=== PATIENT | female | born 1980 | race Caucasian/White ===

== ENCOUNTER 2016-10-19 00:07 | Emergency (ER) | payer OTHER ==
[~2016-10-19] VITALS: Ht 162.6 cm; Wt 96.3 kg
[~2016-10-19 00:07] MED LIST: CEFDINIR300 MG PO; CIPRO500 MG PO; COMPAZINE10 MG PO; ENDOCET 5-3251 EACH PO; FERROUS SULFAT325 MG PO; FLAGYL500 MG PO; IMODIUM MS REL1 EACH PO; IRON325 M1 PO; K-DUR20 MEQ PO; LEVAQUIN500 MG PO; MARINOL2.5 M1 PO; MELATONIN5 M1 PO; NORCO 5/3251 TABLET PO; OXAYDO5 MG PO; PANTOPRAZOLE SO20 MG PO; PANTOPRAZOLE SO40 MG PO; ZOFRAN8 MG PO
[2016-10-19] MEDS ORDERED: PERCOCET 5/31 TABLET PO (03:27)
[2016-10-19 03:36] VITALS: BP 133/80
== END 2016-10-19 03:37 | disposition home or self-care (01) ==
LOC: EME 00:07
DX: T83.89XA Other specified complication of genitourinary prosthetic devices, implants and grafts, initial encounter (principal); Z85.038 Personal history of other malignant neoplasm of large intestine
CPT/HCPCS: 99281; 99283

== ENCOUNTER 2016-10-19 18:49 | Inpatient (IN) | payer OTHER ==
[~2016-10-19] VITALS: Ht 162.6 cm; Wt 103.6 kg
[~2016-10-19 18:49] MED LIST changes: +PERCOCET 5/31 TABLET PO
[2016-10-19 21:37] LABS: CHLORIDE 106 mEq/L (99-109); POTASSIUM 3.9 mEq/L (3.7-5.4); SODIUM 140 mEq/L (136-147)
[2016-10-19 21:39] LABS: GLUCOSE 111 mg/dL (70-99)
[2016-10-19 21:41] LABS: ANION GAP 15 MEQ/L (2-14)
[2016-10-19 21:43] LABS: GFR ESTIMATE (CALCULATED) > 59 mL/min/
[2016-10-19 21:44] LABS: UREA NITROGEN (BUN) 10 mg/dL (9-23)
[2016-10-19 21:45] LABS: HEMATOCRIT 35.4 % (36.0-46.0); MCH 20.6 PG (29.0-34.0); MCHC 30.8 G/DL (30.0-36.0); RBC DIS.WIDTH-CV 20.3 % (11.8-14.6); RBC DIS.WIDTH-SD 47.6 % (39-53)
[2016-10-19 21:55] LABS: RED BLOOD COUNT 5.28 M/uL (3.80-5.20); WHITE BLOOD COUNT 11.1 K/uL (4.1-10.2)
[2016-10-19 22:20] LABS: ADD MIUA? NO; BILIRUBIN NEGATIVE; BLOOD NEGATIVE; COLOR YELLOW ((YELLOW)); GLUCOSE (STRIP) NEGATIVE; KETONES TRACE; LEUKOCYTES NEGATIVE; NITRITE NEGATIVE; PH, URINE 5.5 (5-8); PROTEIN (STRIP) 30; SPECIFIC GRAVITY 1.031 (1.000-1.030); UCUL ADDED? NO; UROBILINOGEN 0.2 MG/DL (0.2-1.0)
[2016-10-19 22:22] LABS: PLATELET COUNT UNABLE TO REPORT K/uL (156-360)
[2016-10-20 15:35] LABS: EOSINOPHIL (%) 0.6 % (0-5); EOSINOPHIL COUNT 0.1 K/uL (0-0.3); HEMATOCRIT 29.9 % (36.0-46.0); IMMATURE GRANULOCYTE (%) 2.5 % (0.0-0.7); IMMATURE GRANULOCYTE COUNT 2.9 K/uL; LYMPHOCYTE COUNT 0.1 K/uL (1.0-2.8); MCH 20.9 PG (29.0-34.0); MCHC 31.1 G/DL (30.0-36.0); MONOCYTE (%) 5.3 % (3-12); MONOCYTE COUNT 0.6 K/uL (0-0.8); NEUTROPHIL (%) 90.6 % (45-76); NEUTROPHIL COUNT 10.7 K/uL (1.8-6.4); RBC DIS.WIDTH-CV 20.5 % (11.8-14.6); RBC DIS.WIDTH-SD 47.4 % (39-53); RED BLOOD COUNT 4.46 M/uL (3.80-5.20); WHITE BLOOD COUNT 11.8 K/uL (4.1-10.2)
[2016-10-20 15:40] LABS: INTER. NORMALIZED RATIO 1.2; PROTHROMBIN TIME 12.1 (9.2-11.2); PTT 25.7 (25-32)
[2016-10-20 16:16] LABS: HEMATOLOGY COMMENT 1 SMEAR COMPATIBLE; PLAT.SUFFICIENCY DECREASED; PLATELET COUNT 113 K/uL (156-360); USER ID SS
[2016-10-20 16:49] VITALS: BP 96/54
[2016-10-20 20:41] VITALS: BP 81/46
[2016-10-20 21:42] VITALS: BP 77/44
[2016-10-20 22:09] LABS: HEMATOCRIT 25.6 % (36.0-46.0); MCV 68.6 FL (83-99)
[2016-10-21] VITALS (16 sets, daily range): BP systolic 86–107; BP diastolic 48–62
[2016-10-21 09:29] LABS: ANION GAP 10 MEQ/L (2-14); CHLORIDE 108 MEQ/L (99-109); GLUCOSE 154 mg/dL (70-99); POTASSIUM 4.3 MEQ/L (3.7-5.4); SAMPLE HEMOLYSIS CHECK 0; SAMPLE ICTERIC CHECK 0; SAMPLE LIPEMIA CHECK 0; SODIUM 137 MEQ/L (136-147)
[2016-10-21 09:31] LABS: GFR ESTIMATE (CALCULATED) 39 mL/min/; UREA NITROGEN (BUN) 26 mg/dL (9-23)
[2016-10-21 09:57] LABS: ABS NEUTROPHIL COUNT 9.68; ANISOCYTOSIS OCC; EOSINOPHIL (%) 0.9 % (0-5); EOSINOPHIL ABS CT 0.22; EOSINOPHIL COUNT 0.1 K/uL (0-0.3); HEMATOCRIT 29.5 % (36.0-46.0); IMMATURE GRANULOCYTE (%) 8.1 % (0.0-0.7); IMMATURE GRANULOCYTE COUNT 0.9 K/uL; LYMPHOCYTE COUNT 0.3 K/uL (1.0-2.8); MCH 22.1 PG (29.0-34.0); MCHC 31.5 G/DL (30.0-36.0); MCV 70.1 FL (83-99); MONOCYTE (%) 7.4 % (3-12); MONOCYTE COUNT 0.8 K/uL (0-0.8); NEUTROPHIL (%) 81.1 % (45-76); NEUTROPHIL COUNT 8.7 K/uL (1.8-6.4); OVALOCYTES OCC; PLAT.SUFFICIENCY DECREASED; PLATELET COUNT 96 K/uL (156-360); RBC DIS.WIDTH-CV 20.4 % (11.8-14.6); RBC DIS.WIDTH-SD 51.4 % (39-53); RED BLOOD COUNT 4.21 M/uL (3.80-5.20); USER ID CCL; WHITE BLOOD COUNT 10.8 K/uL (4.1-10.2)
[2016-10-21 13:41] LABS: ADD MIUA? YES; BILIRUBIN SMALL; BLOOD NEGATIVE; COLOR DK YELLOW ((YELLOW)); GLUCOSE (STRIP) NEGATIVE; KETONES TRACE; LEUKOCYTES NEGATIVE; NITRITE NEGATIVE; PROTEIN (STRIP) 30; SPECIFIC GRAVITY 1.028 (1.000-1.030)
[2016-10-21 13:47] LABS: CASTS NONE SEEN /LPF; CRYSTALS PRESENT; EPITHELIAL CELLS RARE; MUCUS NONE SEEN; PATHOLOGICAL CAST NONE SEEN; RED BLOOD CELLS 0-5 /HPF (0-5); SMALL ROUND CELL NONE SEEN; UCUL ADDED? NO; WHITE BLOOD CELLS 0-5 /HPF (0-5); YEAST-LIKE CELL NONE SEEN
[2016-10-21 14:05] LABS: AMORPHOUS URATES CRYSTALS 4+
[2016-10-21 14:06] LABS: BACTERIA RARE
[2016-10-22 00:17] VITALS: BP 120/66
[2016-10-22 03:26] VITALS: BP 106/54
[2016-10-22 06:51] LABS: EOSINOPHIL (%) 2.1 % (0-5); EOSINOPHIL COUNT 0.2 K/uL (0-0.3); IMMATURE GRANULOCYTE (%) 0.9 % (0.0-0.7); IMMATURE GRANULOCYTE COUNT 0.1 K/uL; LYMPHOCYTE COUNT 0.4 K/uL (1.0-2.8); MONOCYTE COUNT 0.8 K/uL (0-0.8); NEUTROPHIL (%) 84.4 % (45-76); NEUTROPHIL COUNT 8.3 K/uL (1.8-6.4)
[2016-10-22 07:00] LABS: ALKALINE PHOSPHATASE 60 IU/L (3-129); ANION GAP 10 MEQ/L (2-14); CHLORIDE 112 MEQ/L (99-109); GFR ESTIMATE (CALCULATED) 55 mL/min/; GLUCOSE 116 mg/dL (70-99); POTASSIUM 4.3 MEQ/L (3.7-5.4); SAMPLE HEMOLYSIS CHECK 0; SAMPLE ICTERIC CHECK 0; SAMPLE LIPEMIA CHECK 0; SODIUM 140 MEQ/L (136-147); UREA NITROGEN (BUN) 21 mg/dL (9-23)
[2016-10-22 07:28] VITALS: BP 122/63
[2016-10-22 07:48] LABS: MCHC 31.8 G/DL (30.0-36.0); MCV 69.3 FL (83-99); RBC DIS.WIDTH-CV 20.8 % (11.8-14.6); RBC DIS.WIDTH-SD 51.5 % (39-53); RED BLOOD COUNT 4.04 M/uL (3.80-5.20); WHITE BLOOD COUNT 9.8 K/uL (4.1-10.2)
[2016-10-22 07:54] LABS: PLAT.SUFFICIENCY DECREASED; USER ID CL
[2016-10-22 08:04] LABS: PLATELET COUNT 65 K/uL (156-360)
[2016-10-22] MEDS ORDERED: BACTRIM,SEPT1 TABLET PO (11:04)
[2016-10-22 11:26] VITALS: BP 128/69
== END 2016-10-22 12:57 | disposition home or self-care (01) | DRG 872 ==
LOC: EME 18:49 → EDOF 23:15 → 5WEST 23:15 → 4EAST 10-21 00:41
PROVIDERS: Emergency Medicine; Hospitalist; Physician Assistant
PROC: 0T9130Z Drainage of Left Kidney with Drainage Device, Percutaneous Approach (ICD-10-PCS; principal; 2016-10-20)
DX: A41.9 Sepsis, unspecified organism (principal); C18.9 Malignant neoplasm of colon, unspecified; C78.7 Secondary malignant neoplasm of liver and intrahepatic bile duct; N13.1 Hydronephrosis with ureteral stricture, not elsewhere classified; I95.9 Hypotension, unspecified; Z93.6 Other artificial openings of urinary tract status; E66.9 Obesity, unspecified; D64.9 Anemia, unspecified; D69.6 Thrombocytopenia, unspecified; K59.00 Constipation, unspecified; Z68.38 Body mass index [BMI] 38.0-38.9, adult; Z90.49 Acquired absence of other specified parts of digestive tract; Z80.0 Family history of malignant neoplasm of digestive organs; Z80.49 Family history of malignant neoplasm of other genital organs
CPT/HCPCS: 50433; 74176; 80048; 80053; 81003; 83605; 85014; 85018; 85025; 85027; 85610; 85730; 86850; 86900; 86901; 86920; 87040; 87077; 87086; 87147; 87186; 93005; 99281; 99283; 99285; C1769; G0378; J0696; J1170; J1885; J1940; J2405; J2543; J3010; J3480; J7030; J7050; P9016

== ENCOUNTER 2016-10-30 06:26 | Inpatient (IN) | payer OTHER ==
[~2016-10-30] VITALS: Ht 162.6 cm; Wt 95.0 kg
[~2016-10-30 06:26] MED LIST changes: +BACTRIM,SEPT1 TABLET PO
[2016-10-30 06:55] VITALS: BP 121/81
[2016-10-30] MEDS ORDERED: DOCUSATE SODIU100 MG PO (11:41)
[2016-10-30] MEDS ORDERED: ENDOCET 5-3251 EACH PO (11:41)
[2016-10-30 13:31] LABS: ANION GAP 8 MEQ/L (2-14); CHLORIDE 103 MEQ/L (99-109); GFR ESTIMATE (CALCULATED) > 59 mL/min/; GLUCOSE 132 mg/dL (70-99); POTASSIUM 4.6 MEQ/L (3.7-5.4); SAMPLE HEMOLYSIS CHECK 0; SAMPLE ICTERIC CHECK 0; SAMPLE LIPEMIA CHECK 0; SODIUM 136 MEQ/L (136-147); UREA NITROGEN (BUN) 12 mg/dL (9-23)
[2016-10-30 13:34] LABS: HEMATOCRIT 35.4 % (36.0-46.0); MCH 22.1 PG (29.0-34.0); MCHC 30.8 G/DL (30.0-36.0); MCV 71.8 FL (83-99); RBC DIS.WIDTH-CV 22.6 % (11.8-14.6); RBC DIS.WIDTH-SD 57.3 % (39-53); RED BLOOD COUNT 4.93 M/uL (3.80-5.20); WHITE BLOOD COUNT 12.9 K/uL (4.1-10.2)
[2016-10-30 13:41] LABS: PLATELET COUNT 261 K/uL (156-360)
[2016-10-30 18:36] VITALS: BP 128/83
[2016-10-30 22:34] VITALS: BP 125/65
[2016-10-31 04:00] VITALS: BP 138/69
[2016-10-31 04:10] VITALS: BP 138/69
[2016-10-31 07:03] LABS: ANION GAP 8 MEQ/L (2-14); CHLORIDE 99 MEQ/L (99-109); GFR ESTIMATE (CALCULATED) > 59 mL/min/; HEMATOCRIT 31.4 % (36.0-46.0); MCH 21.7 PG (29.0-34.0); MCHC 30.6 G/DL (30.0-36.0); POTASSIUM 4.2 MEQ/L (3.7-5.4); RBC DIS.WIDTH-CV 22.3 % (11.8-14.6); RBC DIS.WIDTH-SD 56.3 % (39-53); RED BLOOD COUNT 4.42 M/uL (3.80-5.20); SAMPLE HEMOLYSIS CHECK 0; SAMPLE ICTERIC CHECK 0; SAMPLE LIPEMIA CHECK 0; SODIUM 133 MEQ/L (136-147); UREA NITROGEN (BUN) 9 mg/dL (9-23)
[2016-10-31 07:11] LABS: GLUCOSE 94 mg/dL (70-99)
[2016-10-31 07:12] LABS: MEAN PLAT.VOLUME 10.2 uM^3 (9.5-12.4); PLATELET COUNT 233 K/uL (156-360)
[2016-10-31 08:19] VITALS: BP 151/91
[2016-10-31 15:48] VITALS: BP 132/66
[2016-10-31 23:39] VITALS: BP 130/73
[2016-11-01] VITALS: BP 130/73
[2016-11-01 03:24] VITALS: BP 118/65
[2016-11-01 07:45] VITALS: BP 124/65
== END 2016-11-01 13:15 | disposition home or self-care (01) | DRG 660 ==
LOC: 5EAST 06:26 → 2SOUTH 06:26 → 5EAST 15:06
PROVIDERS: Urology
DX: N99.89 Other postprocedural complications and disorders of genitourinary system (principal); N13.1 Hydronephrosis with ureteral stricture, not elsewhere classified; N28.9 Disorder of kidney and ureter, unspecified; Z93.6 Other artificial openings of urinary tract status; Z85.038 Personal history of other malignant neoplasm of large intestine; Z85.05 Personal history of malignant neoplasm of liver; Z90.49 Acquired absence of other specified parts of digestive tract; Z98.890 Other specified postprocedural states; E66.9 Obesity, unspecified; Z68.35 Body mass index [BMI] 35.0-35.9, adult
CPT/HCPCS: 36415; 80048; 80076; 81003; 84702; 85025; 85027; 85610; 85730; 86850; 86900; 86901; 86920; 88307; J0330; J0690; J1170; J1580; J1644; J2250; J2405; J2710; J3010; J7050; J7120

== ENCOUNTER 2017-09-27 13:36 | Inpatient (IN) | payer OTHER ==
[~2017-09-27] VITALS: Ht 162.6 cm; Wt 85.8 kg
[~2017-09-27 13:36] MED LIST changes: +DOCUSATE SODIU100 MG PO
[2017-09-27 15:07] LABS: EOSINOPHIL (%) 6.5 % (0-5); EOSINOPHIL COUNT 0.4 K/uL (0-0.3); HEMATOCRIT 41.7 % (36.0-46.0); IMMATURE GRANULOCYTE (%) 0.2 % (0.0-0.7); LYMPHOCYTE COUNT 0.8 K/uL (1.0-2.8); MCH 29.5 PG (29.0-34.0); MCHC 33.8 G/DL (30.0-36.0); MCV 87.2 FL (83-99); MEAN PLAT.VOLUME 11.4 uM^3 (9.5-12.4); MONOCYTE (%) 6.7 % (3-12); MONOCYTE COUNT 0.4 K/uL (0-0.8); NEUTROPHIL (%) 71.2 % (45-76); PLATELET COUNT 79 K/uL (156-360); RBC DIS.WIDTH-CV 15.1 % (11.8-14.6); RBC DIS.WIDTH-SD 48.9 % (39-53); RED BLOOD COUNT 4.78 M/uL (3.80-5.20); WHITE BLOOD COUNT 5.6 K/uL (4.1-10.2)
[2017-09-27 15:14] LABS: CHLORIDE 105 mEq/L (99-109); POTASSIUM 3.9 mEq/L (3.7-5.4); SODIUM 137 mEq/L (136-147)
[2017-09-27 15:16] LABS: GLUCOSE 95 mg/dL (70-99)
[2017-09-27 15:17] LABS: ANION GAP 9 MEQ/L (2-14)
[2017-09-27 15:18] LABS: TOTAL BILIRUBIN 0.8 mg/dL (0.0-1.0)
[2017-09-27 15:19] LABS: ALKALINE PHOSPHATASE 45 IU/L (3-129)
[2017-09-27 15:20] LABS: GFR ESTIMATE (CALCULATED) > 59 mL/min/
[2017-09-27 15:21] LABS: UREA NITROGEN (BUN) 7 mg/dL (9-23)
[2017-09-27 15:23] LABS: LIPASE 26 U/L (1.0-51.0)
[2017-09-27 15:47] LABS: ADD MIUA? YES; BILIRUBIN NEGATIVE; BLOOD NEGATIVE; COLOR YELLOW ((YELLOW)); GLUCOSE (STRIP) NEGATIVE; KETONES 5; LEUKOCYTES SMALL; NITRITE NEGATIVE; PROTEIN (STRIP) 100; SPECIFIC GRAVITY 1.027 (1.000-1.030)
[2017-09-27 15:49] LABS: BACTERIA RARE /HPF; EPITHELIAL CELLS RARE /HPF; MUCUS 1+ /LPF; UCUL ADDED? NO; WHITE BLOOD CELLS 0-5 /HPF (0-5)
[2017-09-27] MEDS ORDERED: DURAGESIC50 MCG TD (19:09)
[2017-09-27] MEDS ORDERED: PROTONIX40 MG PO (19:09)
[2017-09-27] MEDS ORDERED: OXYCODONE HCL15 MG PO (19:09)
[2017-09-27] MEDS ORDERED: METOCLOPRAMIDE10 MG PO (19:09)
[2017-09-27 21:26] VITALS: BP 154/95
[2017-09-28 04:00] VITALS: BP 120/68
[2017-09-28 07:19] VITALS: BP 129/78
[2017-09-28 11:09] VITALS: BP 130/82
[2017-09-28 14:51] VITALS: BP 134/81
[2017-09-28 20:09] VITALS: BP 142/79
[2017-09-29 00:36] VITALS: BP 122/70
[2017-09-29 06:18] LABS: HEMATOCRIT 37.3 % (36.0-46.0); MCH 30.4 PG (29.0-34.0); MCHC 34.3 G/DL (30.0-36.0); MCV 88.6 FL (83-99); MEAN PLAT.VOLUME 11.3 uM^3 (9.5-12.4); PLATELET COUNT 69 K/uL (156-360); RBC DIS.WIDTH-CV 14.8 % (11.8-14.6); RBC DIS.WIDTH-SD 48.4 % (39-53); RED BLOOD COUNT 4.21 M/uL (3.80-5.20); WHITE BLOOD COUNT 4.1 K/uL (4.1-10.2)
[2017-09-29 07:01] LABS: ANION GAP 7 MEQ/L (2-14); CHLORIDE 106 MEQ/L (99-109); GFR ESTIMATE (CALCULATED) > 59 mL/min/; GLUCOSE 89 mg/dL (70-99); POTASSIUM 4.2 MEQ/L (3.7-5.4); SAMPLE HEMOLYSIS CHECK 0; SAMPLE ICTERIC CHECK 0; SAMPLE LIPEMIA CHECK 0; SODIUM 140 MEQ/L (136-147); UREA NITROGEN (BUN) 6 mg/dL (9-23)
[2017-09-29] MEDS ORDERED: DILAUDID8 MG PO (10:41)
== END 2017-09-29 11:56 | disposition home or self-care (01) | DRG 948 ==
LOC: EME 13:36 → EDOF 19:39 → ENRESERV 19:41 → CANRESERV 19:41 → ENRESERV 19:43 → 5EAST 21:15
PROVIDERS: Emergency Medicine; Internal Medicine
DX: G89.3 Neoplasm related pain (acute) (chronic) (principal); C18.0 Malignant neoplasm of cecum; C78.7 Secondary malignant neoplasm of liver and intrahepatic bile duct; C78.6 Secondary malignant neoplasm of retroperitoneum and peritoneum; D69.6 Thrombocytopenia, unspecified; E66.9 Obesity, unspecified; Z68.32 Body mass index [BMI] 32.0-32.9, adult; Z90.5 Acquired absence of kidney; K59.00 Constipation, unspecified; F12.90 Cannabis use, unspecified, uncomplicated; E28.2 Polycystic ovarian syndrome; Z80.49 Family history of malignant neoplasm of other genital organs
CPT/HCPCS: 74176; 80048; 80053; 81003; 83605; 83690; 85025; 85027; 87040; 99281; 99285; G0378; J1170; J1200; J1626; J1644; J1885; J2405; J2765; J3010; J7030; J7050; S0028

== ENCOUNTER → 2018-03-19 | Outpatient (CLI) | payer OTHER ==
[~2018-03-19] MED LIST changes: +ATIVAN0.5 MG PO; +COLACE100 MG PO; +DILAUDID8 MG PO; +DURAGESIC50 MCG TD; +ENULOSE10 GM/15 M PO; +METOCLOPRAMIDE10 MG PO; +NARCAN4 MG NS; +OXYCODONE HCL15 MG PO; +OXYCODONE HCL30 MG PO; +PROTONIX40 MG PO; +SENNA8.6 MG PO
== END | disposition home or self-care (01) ==
LOC: RAD 03-09 13:30
PROC: 0WJG3ZZ Inspection of Peritoneal Cavity, Percutaneous Approach (ICD-10-PCS; principal; 2018-03-19)
DX: R18.8 Other ascites (principal); Z53.09 Procedure and treatment not carried out because of other contraindication
CPT/HCPCS: 49083

== ENCOUNTER → 2018-04-14 | Outpatient (CLI) | payer OTHER | END | disposition home or self-care (01) | LOC: RAD 08:25 | PROC: 0W9G3ZZ Drainage of Peritoneal Cavity, Percutaneous Approach (ICD-10-PCS; principal; 2018-04-14) | DX: R18.8 Other ascites (principal) | CPT/HCPCS: 49083 ==

== ENCOUNTER → 2018-05-03 | Outpatient (CLI) | payer OTHER | END | disposition home or self-care (01) | LOC: RAD 08:19 | PROC: 0W9G3ZZ Drainage of Peritoneal Cavity, Percutaneous Approach (ICD-10-PCS; principal; 2018-05-03) | DX: R18.8 Other ascites (principal) | CPT/HCPCS: 49083 ==

== ENCOUNTER → 2018-05-14 | Outpatient (CLI) | payer OTHER ==
[~2018-05-14] MED LIST changes: +DURAGESIC100 MCG TD
== END | disposition home or self-care (01) ==
LOC: RAD 05-12 08:15
PROC: 0W9G3ZZ Drainage of Peritoneal Cavity, Percutaneous Approach (ICD-10-PCS; principal; 2018-05-14)
DX: R18.8 Other ascites (principal)
CPT/HCPCS: 49083

== ENCOUNTER 2018-05-27 00:09 | Observation (INO) | payer OTHER ==
[~2018-05-27] VITALS: Ht 162.6 cm; Wt 70.3 kg
[~2018-05-27 00:09] MED LIST changes: -ATIVAN0.5 MG PO; +ATIVAN1 MG PO
[2018-05-27 00:31] LABS: BASOPHIL (%) 0.1 % (0-1); EOSINOPHIL (%) 0 % (0-5); HEMATOCRIT 33.8 % (36.0-46.0); HEMOGLOBIN 11.3 G/DL (11.9-15.5); IMMATURE GRANULOCYTE (%) 0.7 % (0.0-0.7); LYMPHOCYTE (%) 4.7 % (15-42); LYMPHOCYTE COUNT 0.5 K/uL (1.0-2.8); MCH 28.3 PG (29.0-34.0); MCHC 33.4 G/DL (30.0-36.0); MCV 84.5 FL (83-99); MONOCYTE (%) 6.9 % (3-12); MONOCYTE COUNT 0.7 K/uL (0-0.8); NEUTROPHIL (%) 87.6 % (45-76); PLATELET COUNT 221 K/uL (156-360); RBC DIS.WIDTH-CV 15.9 % (11.8-14.6); RBC DIS.WIDTH-SD 47.6 % (39-53); WHITE BLOOD COUNT 10.3 K/uL (4.1-10.2)
[2018-05-27 00:41] LABS: ALBUMIN 3.5 g/dL (3.2-4.8); CHLORIDE 100 mEq/L (99-109); POTASSIUM 3.4 mEq/L (3.7-5.4); SODIUM 138 mEq/L (136-147)
[2018-05-27 00:44] LABS: GLUCOSE 111 mg/dL (70-99); TOTAL PROTEIN 6.3 g/dL (6.4-8.3)
[2018-05-27 00:46] LABS: TOTAL BILIRUBIN 0.6 mg/dL (0.0-1.0)
[2018-05-27 00:47] LABS: ALKALINE PHOSPHATASE 221 IU/L (3-129); CREATININE 0.7 mg/dL (0.6-1.3); GFR ESTIMATE (CALCULATED) > 59 mL/min/
[2018-05-27 00:48] LABS: UREA NITROGEN (BUN) 14 mg/dL (9-23)
[2018-05-27 00:49] LABS: AST (GOT) 31 IU/L (2-34)
[2018-05-27 00:50] LABS: ALT (GPT) 23 IU/L (3-49)
[2018-05-27 00:51] LABS: LIPASE 25 U/L (1.0-51.0)
[2018-05-27 00:57] LABS: QUANTITATIVE HCG < 4.0 MIU/ML
[2018-05-27 05:49] VITALS: BP 123/77
[2018-05-27 07:30] VITALS: BP 109/70
[2018-05-27] MEDS ORDERED: AGONEAZE 2.5%-1 EACH TP (10:30)
[2018-05-27 11:38] VITALS: BP 124/79
[2018-05-27 15:10] VITALS: BP 123/68
[2018-05-27 19:12] VITALS: BP 124/78
[2018-05-27 23:59] VITALS: BP 105/70
[2018-05-28 03:18] VITALS: BP 121/65
[2018-05-28 08:03] VITALS: BP 113/72
[2018-05-28] MEDS ORDERED: DURAGESIC100 MCG TD ×2 (09:35→09:36)
[2018-05-28] MEDS ORDERED: ETH-OXYDOS20 MG/1 ML PO (09:35)
[2018-05-28] MEDS ORDERED: DURAGESIC25 MCG TD (09:35)
[2018-05-28 11:24] VITALS: BP 113/72
== END 2018-05-28 11:38 | disposition home or self-care (01) ==
LOC: EME → EDBD 00:09 → EDOF 03:18 → 2EAST 03:18 → EDOF 03:18 → 2EAST 04:50
PROVIDERS: Emergency Medicine
PROC: 0W9G3ZZ Drainage of Peritoneal Cavity, Percutaneous Approach (ICD-10-PCS; principal; 2018-05-27)
DX: G89.3 Neoplasm related pain (acute) (chronic) (principal); C18.9 Malignant neoplasm of colon, unspecified; C78.6 Secondary malignant neoplasm of retroperitoneum and peritoneum; C78.7 Secondary malignant neoplasm of liver and intrahepatic bile duct; C77.5 Secondary and unspecified malignant neoplasm of intrapelvic lymph nodes; R18.0 Malignant ascites; Z92.21 Personal history of antineoplastic chemotherapy; R11.2 Nausea with vomiting, unspecified; Z87.440 Personal history of urinary (tract) infections; Z90.5 Acquired absence of kidney; Z80.0 Family history of malignant neoplasm of digestive organs; Z80.1 Family history of malignant neoplasm of trachea, bronchus and lung; Z80.49 Family history of malignant neoplasm of other genital organs; F41.9 Anxiety disorder, unspecified
CPT/HCPCS: 49083; 74176; 80053; 81003; 83690; 84702; 85025; 85027; 87493; 99281; 99285; C9113; G0378; J1170; J1200; J1644; J2060; J2405; J2765; J3480; J7030; J7050

== ENCOUNTER → 2018-06-08 | Outpatient (CLI) | payer OTHER ==
[~2018-06-08] MED LIST changes: +AGONEAZE 2.5%-1 EACH TP; +DURAGESIC25 MCG TD; +ETH-OXYDOS20 MG/1 ML PO
== END | disposition home or self-care (01) ==
LOC: RAD 13:23
PROC: 0W9G3ZZ Drainage of Peritoneal Cavity, Percutaneous Approach (ICD-10-PCS; principal; 2018-06-08)
DX: R18.8 Other ascites (principal)
CPT/HCPCS: 49083

== ENCOUNTER → 2018-06-17 | Outpatient (CLI) | payer OTHER | END | disposition home or self-care (01) | LOC: RAD 08:08 | PROC: 0W9G3ZZ Drainage of Peritoneal Cavity, Percutaneous Approach (ICD-10-PCS; principal; 2018-06-17) | DX: R18.8 Other ascites (principal) | CPT/HCPCS: 49083 ==